=== PATIENT | female | born 1985 | race Caucasian/White ===

== ENCOUNTER → 2017-06-19 | Outpatient (CLI) | payer OTHER ==
[~2017-06-19] MED LIST: ALBUAER3 INH; NAPR500 PO; PREN1CAP20 PO; ZOFR4TAB PO
== END ==
LOC: HPND 10:03
PROVIDERS: ATTEND Obstetrics & Gynecology
DX: O99.322 Drug use complicating pregnancy, second trimester (principal); O98.512 Other viral diseases complicating pregnancy, second trimester
CPT/HCPCS: 76801; 76802

== ENCOUNTER → 2017-07-18 | Outpatient (CLI) | payer OTHER | LOC: HPND 10:16 | PROVIDERS: ATTEND Obstetrics & Gynecology | DX: O99.322 Drug use complicating pregnancy, second trimester (principal); O98.512 Other viral diseases complicating pregnancy, second trimester | CPT/HCPCS: 76811; 76812; 76817 ==

== ENCOUNTER → 2017-08-15 | Outpatient (CLI) | payer OTHER | LOC: HPND 09:55 | PROVIDERS: ATTEND Obstetrics & Gynecology | DX: O35.8XX2 Maternal care for other (suspected) fetal abnormality and damage, fetus 2 (principal); O30.042 Twin pregnancy, dichorionic/diamniotic, second trimester; O99.322 Drug use complicating pregnancy, second trimester | CPT/HCPCS: 76816; 76825; 76827; 93325 ==

== ENCOUNTER → 2017-09-04 | Outpatient (CLI) | payer OTHER | LOC: HPND 08:54 | PROVIDERS: ATTEND Obstetrics & Gynecology | DX: O99.322 Drug use complicating pregnancy, second trimester (principal); O30.042 Twin pregnancy, dichorionic/diamniotic, second trimester; O35.8XX0 Maternal care for other (suspected) fetal abnormality and damage, not applicable or unspecified | CPT/HCPCS: 76815; 76817 ==

== ENCOUNTER → 2017-10-11 | Outpatient (CLI) | payer OTHER | LOC: HPND 08:31 | PROVIDERS: ATTEND Obstetrics & Gynecology | DX: O30.042 Twin pregnancy, dichorionic/diamniotic, second trimester (principal); O99.322 Drug use complicating pregnancy, second trimester; O35.8XX0 Maternal care for other (suspected) fetal abnormality and damage, not applicable or unspecified | CPT/HCPCS: 76816 ==

== ENCOUNTER → 2017-11-08 | Outpatient (CLI) | payer OTHER | LOC: HPND 10:25 | PROVIDERS: ATTEND Obstetrics & Gynecology | DX: O30.042 Twin pregnancy, dichorionic/diamniotic, second trimester (principal); O35.8XX0 Maternal care for other (suspected) fetal abnormality and damage, not applicable or unspecified; O99.322 Drug use complicating pregnancy, second trimester | CPT/HCPCS: 76816 ==

== ENCOUNTER 2017-12-08 18:18 | Inpatient (IN) ==
--- NOTE | 2017-12-08 19:54 | P.HPOB ---
History of Present Illness Primary Care Physician: NOT REQUIRED Chief Complaint: Induction of labor History of Present Illness: Ms. Roberson is a 32yo at 38/1 with dichorionic diamniotic twins who is here for induction due to IUGR of fetus B with 19% discordance in growth. She reports no gush of fluid, no vaginal bleeding, and is not feeling contractions. During previous deliveries she tore significantly and had extensive sutures. She is GBS status unknown. PMH significant for Hep C and asthma. Patient is currently on Subutex. - Inpatient Certification I certify that the inpatient services were ordered in accordance with Medicare regulations governing the order. This includes certification that hospital inpatient services are reasonable and necessary and in the case of services not specified as inpatient-only under 42 CFR 419.22(n), that they are appropriately provided as inpatient services in accordance to with the 2-midnight benchmark under 43 CFR 412.3(e) Review of Systems Constitutional: Denies chills, Denies fever(s) Cardiovascular: Denies chest pain Respiratory: Denies cough, Denies shortness of breath Gastrointestinal: Denies abdominal pain, Denies nausea, Denies vomiting Genitourinary: Denies abnormal vaginal bleeding, Denies painful urination, Denies pelvic pain Musculoskeletal: Reports back pain PMFSH - Medical / Surgical Hx Neg / Unobtainable Surgical History: No Previous Surgery - Medical History Medical History: Medical History (Last Updated 12/08/17 @ 19:51 by Bailey Andrews MD, R1) Asthma Hepatitis C - Tobacco History Tobacco Use In Past 30 Days: No Smoking Status: Former smoker - Alcohol History How Often Do You Have a Drink Containing Alcohol: Never (Not in ) - Substance Use History Substance History: Past History Medications and Allergies Allergies Allergy/AdvReac Type Severity Reaction Status Date / Time No Known Allergies Allergy Unknown NKA Uncoded 12/08/17 21:11 Home Medications Medication Instructions Recorded Confirmed Type albuterol sulfate [ProAir HFA] 12/08/17 12/08/17 History buprenorphine HCl 12/08/17 12/08/17 History vit [id number] 12/08/17 12/08/17 History [Prenate Mini (ferr asp glycin)] Exam Vital signs: Vital Signs 12/08/17 18:43 Temperature 98.3 F Pulse Rate 110 H Respiratory Rate 20 Blood Pressure 126/79 - Constitutional no acute distress - Routine Respiratory Exam Present: CTA bilaterally. Absent: accessory muscle use, wheezes, crackles - Routine Cardiovascular Exam Present: RRR, S1, S2 - Routine Abdominal Exam Present: normoactive bowel sounds Comments: Gravid - Routine Exam Comments: Cervical Exam by Dr. Li / - Routine Extremities Exam Present: pulses intact. Absent: edema, calf tenderness - Additional findings Additional findings: FHT: Baseline Baby A: 130, minimal to moderate variability, no decels Baseline Baby B 135, minimal to moderate variability, no decels Results - Labs CBC & Chem 7: 12/08/17 20:10 Caprini VTE Risk Assessment Caprini VTE Risk Assessment: No/Low Risk (score <= 1) Caprini Risk Assessment Model: Point Value = 1 Point Value = 2 Point Value = 3 Point Value = 5 Age 41-60 Minor surgery BMI > 25 kg/m2 Swollen legs Varicose veins or History of unexplained or recurrent spontaneous Oral contraceptives or hormone replacement Sepsis (< 1 month) Serious lung disease, including pneumonia (< 1 month) Abnormal pulmonary function Acute myocardial infarction Congestive heart failure (< 1 month) History of inflammatory bowel disease Medical patient at bed rest Age 61-74 Arthroscopic surgery Major open surgery (> 45 min) Laparoscopic surgery (> 45 min) Malignancy Confined to bed (> 72 hours) Immobilizing plaster cast Central venous access Age >= 75 History of VTE Family history of VTE Factor V Leiden Prothrombin [id number] Lupus anticoagulant Anticardiolipin antibodies Elevated serum homocysteine Heparin-induced thrombocytopenia Other congenital or acquired thrombophilia Stroke (< 1 month) Elective arthroplasty Hip, pelvis, or leg fracture Acute spinal cord injury (< 1 month) Prophylaxis Regimen: Total Risk Factor Score Risk Level Prophylaxis Regimen 0-1 Low Early ambulation 2 Moderate Order ONE of the following: *Sequential Compression Device (SCD) *Heparin 5000 units SQ BID 3-4 Higher Order ONE of the following medications: *Heparin 5000 units SQ TID *Enoxaparin/Lovenox 40 mg SQ daily (WT < 150 kg, CrCl > 30 mL/min) *Enoxaparin/Lovenox 30 mg SQ daily (WT < 150 kg, CrCl > 10-29 mL/min) *Enoxaparin/Lovenox 30 mg SQ BID (WT < 150 kg, CrCl > 30 mL/min) AND/OR *Sequential Compression Device (SCD) 5 or more Highest Order ONE of the following medications: *Heparin 5000 units SQ TID (Preferred with Epidurals) *Enoxaparin/Lovenox 40 mg SQ daily (WT < 150 kg, CrCl > 30 mL/min) *Enoxaparin/Lovenox 30 mg SQ daily (WT < 150 kg, CrCl > 10-29 mL/min) *Enoxaparin/Lovenox 30 mg SQ BID (WT < 150 kg, CrCl > 30 mL/min) AND *Sequential Compression Device (SCD) Assessment and Plan - Plan Ms. Roberson 32yo at 38/1 with di-di twins and IUGR of fetus 2 here for induction -Admit to labor and delivery -Pitocin 05/21/29 -Epidural PRN -GBS rapid PCR -UDS, CBC, Type and Screen, UA -Continuous monitoring -Expectant management - Attending Attestation The exam, history, and the medical decision-making described in the above note were completed with the assistance of the resident physician. I reviewed and agree with the findings presented. I attest that I had a [id number] encounter with the patient on the same day, and personally performed and documented my assessment and findings in the medical record.
[2017-12-08] MEDS ORDERED: fentaNYL Citrate Inj 100 MCG/2 ML Ampul IV.PUSH PRN ×2 (20:04)
[2017-12-08] MEDS ORDERED: Oxytocin 30 Units/500ml Premix 30 UNITS/500 ML BAG IV.SIG ONE (20:04)
[2017-12-08] MEDS ORDERED: Naloxone Inj 0.4 MG/ML Vial IV.PUSH PRN (20:04)
[2017-12-08] MEDS ORDERED: Sod Chloride 0.9% Inj 1,000 ML IV.CONT PRN (20:04)
[2017-12-08] MEDS ORDERED: Sodium Chlor 0.9% Inj 500 ML IV.SIG PRN (20:04)
[2017-12-08] MEDS ORDERED: Citric Acid/Sodium Citrate Liq 30 ML UDC PO SCH (20:15)
[2017-12-08 20:43] LABS: Baso % (Auto) 0.4 % (0.0-2.0); Eos % (Auto) 0.3 % (0.0-4.0); Hematocrit 32.8 % (35.0-46.0); Hemoglobin 10.9 gm/dL (11.6-15.3); Lymph % (Auto) 24.9 % (9.0-44.0); Mean Corpuscular HGB Conc 33.2 % (32.0-36.0); Mean Corpuscular Hemoglobin 25.8 pg (27.0-34.0); Mean Corpuscular Volume 77.8 fL (80.0-100.0); Mean Platelet Volume 8.1 fL (7.0-11.0); Mono # (Auto) 0.6 th/mm3 (0.0-0.9); Mono % (Auto) 7.7 % (0.0-8.0); Neut # (Auto) 5.4 th/mm3 (1.8-7.7); Neut % (Auto) 66.7 % (16.0-70.0); Platelet Count 324 th/mm3 (150-450); Red Blood Count 4.21 mil/mm3 (4.00-5.30); Red Cell Distribution Width 17.1 % (11.6-17.2); White Blood Count 8.1 th/mm3 (4.0-11.0)
[2017-12-08 21:49] LABS: Amphetamine Urine With Conf Neg (Neg); Benzodiazepine Urine With Conf Neg (Neg)
[2017-12-08 21:58] LABS: Bacteria,Urine Rare /hpf; Bilirubin,Urine Negative (Negative); Clarity,Urine Hazy (Clear); Color,Urine Yellow (Yellw/Straw); Glucose,Urine (UA) Negative (Negative); Leukocyte Esterase,Urine Negative (Negative); Nitrite,Urine Negative (Negative); Specific Gravity,Urine 1.013 (1.002-1.035); Squamous Epithelial Cell,Urine <1 /hpf (0-5); Urobilinogen,Urine 4 or Greater mg/dL (Less than 2)
[2017-12-08] MEDS: Oxytocin 30 Units/500ml Premix 30 UNITS/500 ML BAG IV.SIG PRN ×2 (22:56→22:58)
--- NOTE | 2017-12-09 01:15 | P.OBGPN ---
S: The patient reports minimal cramping O: heart rates are category 1, contractions are mild and irregular GBS is negative Assessment: Medical induction of dichorionic twins secondary to IUGR of twin B Plan: Continue low-dose Pitocin protocol
[2017-12-09] MEDS ORDERED: fentaNYL 2MCG-Bupiv 0.125% Epi 150 ML EPIDURAL ONE (02:00)
[2017-12-09] MEDS ORDERED: fentaNYL Citrate Inj 100 MCG/2 ML Ampul EPIDURAL ONE (02:38)
[2017-12-09] MEDS ORDERED: fentaNYL 2MCG-Bupiv 0.125% Epi 150 ML EPIDURAL PRN (02:38)
[2017-12-09] MEDS ORDERED: Tranexamic Acid Inj 1,000 MG/10 ML Ampul ONE (08:25)
[2017-12-09] MEDS ORDERED: miSOPROStol 200 MCG Tablet ONE (08:25)
[2017-12-09] MEDS ORDERED: Methylergonovine Inj 0.2 MG/ML Ampul ONE (08:26)
[2017-12-09] MEDS ORDERED: Benzocaine 20% Top Spray 60 ML Can TOPICAL PRN (08:42)
[2017-12-09] MEDS ORDERED: Witch Hazel 50%/Glyderin 12.5% 40 Pad Jar RECTAL PRN (08:42)
[2017-12-09] MEDS ORDERED: Naloxone Inj 0.4 MG/ML Vial IV.PUSH PRN (08:42)
[2017-12-09] MEDS ORDERED: Bisacodyl 10 MG Supp RECTAL PRN (08:42)
[2017-12-09] MEDS ORDERED: Oxytocin 30 Units/500ml Premix 30 UNITS/500 ML BAG IV.CONT SCH (08:45)
--- NOTE | 2017-12-09 08:55 | P.OBDELI ---
Weeks Gestation: 38 Patient Started Active Labor: Yes Active Labor Start Date: 12/09/17 Active Labor Start Time: 02:00 Medical Induction of Labor: Yes (for IUGR twin B) Medical Induction Start Date: 12/08/17 Artificial Rupture of Membrane: Yes Artificial ROM Date: 12/08/17 Anesthesia: Epidural Episiotomy: none Delayed Cord Clamping (45 sec): Yes Placenta: Spontaneous delivery, Intact, 3 vessel cord Laceration: None Estimated blood loss (mL): 300 Male A Infant Delivery Date: 12/09/17 score (1 min): 8 score (5 min): 9 (The patient was taken to the back at complete dilation for double set up. The patient pushed effectively to deliver the OA vertex of twin A. There is no delay for the shoulders and the remainder the infant followed easily. The baby was passed to the maternal abdomen were delayed cord clamping was accomplished.) Male B Delivery Date: 12/09/17 score (1 min): 8 score (5 min): 9 (Examination after the delivery of twin A demonstrated that the vertex was descending into the pelvis. With maternal effort the vertex became well applied and was brought to +2 station. The vacuum was applied to the flex point and vacuum-assisted vaginal delivery of the OA vertex was accomplished. The vacuum was removed. There was no delay for the shoulders and the was passed to maternal abdomen were delayed cord clamping was accomplished. Active management of these third stage allowed for spontaneous delivery of the placenta. This was sent for pathologic evaluation with a cord clamp on baby A cord.)
[2017-12-09] MEDS ORDERED: Methylergonovine Inj 0.2 MG/ML Ampul IM ONE (11:45)
[2017-12-09] MEDS: Ibuprofen 400 MG Tablet PO PRN ×2 (11:48→20:23)
[2017-12-09] MEDS: Acetaminophen 325 MG Tablet PO PRN ×2 (11:48→20:24)
[2017-12-09] MEDS ORDERED: Measles/Mumps/Rubella Vaccine Inj 0.5 ML Vial SQ ONE (16:00)
[2017-12-09] MEDS ORDERED: Diphtheria/Tetanus/Pertussis Vaccine Inj 0.5 ML Syringe IM ONE (16:00)
[2017-12-09] MEDS: Senna/Docusate Sodium 8.6/50 MG Tablet PO SCH (20:23)
[2017-12-09] MEDS ORDERED: Zolpidem Tartrate 5 MG Tablet PO PRN (21:00)
[2017-12-10] MEDS ORDERED: LORazepam 1 MG Tablet PO PRN (04:40)
[2017-12-10] MEDS: Ibuprofen 400 MG Tablet PO PRN (07:50)
[2017-12-10] MEDS: Senna/Docusate Sodium 8.6/50 MG Tablet PO SCH (07:51)
--- NOTE | 2017-12-10 08:47 | P.PNOB ---
Subjective Interval history: Patient is a 32-year-old delivered at 38 weeks and 2 days. Patient is day 1 after . Patient's pain is well-controlled. Patient reports eating and drinking without any nausea or vomiting. Patient reports minimal bleeding. Patient has passed gas but no bowel movements. Patient is walking without lower extremity pain or shortness of breath. Patient reports desire for contraception with Depo-Provera shot and bottlefeeding. Objective Vital Signs/I&O: Vital Signs 12/09/17 09:00 12/09/17 09:15 12/09/17 09:30 Temperature 97.4 F L Pulse Rate Respiratory Rate 16 16 Blood Pressure 115/70 120/85 122/89 12/09/17 10:15 12/09/17 19:30 Temperature 97.8 F 98.0 F Pulse Rate 96 H 111 H Respiratory Rate 18 16 Blood Pressure 121/75 146/74 H Result Diagrams: 12/08/17 20:10 Objective Remarks: GENERAL: Well-nourished, well-developed patient. CARDIOVASCULAR: Regular rate and rhythm without murmurs, gallops, or rubs. RESPIRATORY: Breath sounds equal bilaterally. No accessory muscle use. ABDOMEN/GI: Abdomen soft, non-tender. Fundus: Firm, non-tender at umbilicus. GENITOURINARY: Light to moderate bleeding. EXTREMITIES: No cyanosis or edema, non-tender, without signs of DVT. Medications and IVs: Active Medications Acetaminophen (Tylenol) 650 mg PO Q4H PRN PRN Reason: PAIN SCALE 1 TO 2 Last Admin: 12/09/17 20:24 Dose: 650 mg Al Hydroxide/Mg Hydroxide (Milk Of Magnesia Liq) 30 ml PO Q12H PRN PRN Reason: Mild Constipation Benzocaine (Americaine 20% [place]) 1 spray TOPICAL Q4H PRN PRN Reason: For Perineum Discomfort Bisacodyl (Dulcolax Supp) 10 mg RECTAL DAILY PRN PRN Reason: SEVERE CONSITIPATION Citric Acid/Sodium Citrate (Sodium Citrate/Citric Acid Liq) 30 ml PO BASEBALL SCOUT [facility] Stop: 12/12/17 20:14 Last Admin: 12/08/17 22:26 Dose: 30 ml Lactated Ringer's (Lr 1000 Ml Inj) 1,000 mls @ 125 mls/hr IV.CONT .Q8H [facility] Last Admin: 12/08/17 23:26 Dose: 125 mls/hr Lactated Ringer's (Lr 1000 Ml Inj) 1,000 mls @ 3,000 mls/hr IV.SIG UNSCH PRN PRN Reason: compromise or epidural Sodium Chloride (Ns Inj) 500 mls @ 1,000 mls/hr IV.SIG UNSCH PRN PRN Reason: SEE LABEL COMMENTS Sodium Chloride (Ns Inj) 1,000 mls @ 100 mls/hr IV.CONT .Q10H PRN PRN Reason: SEE LABEL COMMENTS Lactulose (Lactulose Liq) 30 ml PO DAILY PRN PRN Reason: SEVERE CONSITIPATION Lidocaine HCl (Xylocaine 1% Inj) 0.1 ml I-DERMAL PRN PRN PRN Reason: For IV start Stop: 12/11/17 20:03 Lidocaine HCl (Xylocaine 1% Inj) 10 ml INFILTRATN PRN PRN PRN Reason: For episiotomy repair Stop: 12/10/17 20:03 Mineral Oil (Muri-Lube Oil) 10 ml TOPICAL PRN PRN PRN Reason: PRN perineal massage Naloxone HCl (Narcan Inj) 0.1 mg IV.PUSH Q2M PRN PRN Reason: for opiate reversal Ondansetron HCl (Zofran Odt) 4 mg PO Q6H PRN PRN Reason: NAUSEA OR VOMITING Oxycodone/Acetaminophen (Percocet 5/325 Mg) 1 tab PO Q4H PRN PRN Reason: PAIN SCALE 3 TO 5 Oxycodone/Acetaminophen (Percocet 5/325 Mg) 2 tab PO Q4H PRN PRN Reason: PAIN SCALE 6 TO 10 Last Admin: 12/10/17 07:50 Dose: 2 tab Senna/Docusate Sodium (Jade-Colace) 1 tab PO BID [facility] Last Admin: 12/10/17 07:51 Dose: 1 tab Sennosides (Senokot) 17.2 mg PO Q12H PRN PRN Reason: Moderate Constipation Sodium Chloride (Ns Flush) 2 ml IV.FLUSH BID [facility] Sodium Chloride (Ns Flush) 2 ml IV.FLUSH PRN PRN PRN Reason: FLUSH AFTER USING IV ACCESS Witch Jacki/Glycerin (Tucks Pads) 1 applicatio RECTAL QID PRN PRN Reason: HEMORRHOIDS Zolpidem Tartrate (Ambien) 5 mg PO HS PRN PRN Reason: SLEEP Last Admin: 12/10/17 01:02 Dose: 5 mg Assessment and Plan - Plan Ms. Roberson 32yo at 38/1 with di-di twins and IUGR of fetus 2 here for induction -Admit to labor and delivery -Pitocin 05/21/29 -Epidural PRN -GBS rapid PCR -UDS, CBC, Type and Screen, UA -Continuous monitoring -Expectant management Discharge Planning: Patient is a 32-year-old delivered at 38 weeks and 2 days. Patient is day 1 after vaginal delivery. Patient was counseled to do 6 weeks of pelvic rest. Patient was counseled to follow up in 6 weeks. Patient requested follow-up and contraception. --AF VSS --Continue routine care --Motrin and Tylenol when necessary for pain --Encourage OOB --Pelvic rest for 6 weeks will need follow-up appointment at that time. --Contraception: Depo-Provera shot --Anticipate discharge today
[2017-12-10 08:53] VITALS: BP 117/84; PULSE 110; RESP 18; TEMP 97.8
[2017-12-10] MEDS ORDERED: medroxyPROGESTERone Acetate Inj 150 MG/ML Syringe IM ONE (10:00)
== END 2017-12-10 10:00 | disposition home or self-care (01) ==
LOC: H2E 18:18 → H1EA 12-09 10:22
PROVIDERS: ADMIT Obstetrics & Gynecology; ATTEND Obstetrics & Gynecology